=== PATIENT | female | born 1995 | race Caucasian/White ===

== ENCOUNTER 2020-09-20 18:07 | Emergency (ER) | payer BC, OTHER ==
[2020-09-20] MEDS ORDERED: Ketorolac 30 MG/ML SDV IM ONE (18:39)
--- NOTE | 2020-09-20 18:41 | EDM.PDOC ---
Scribed by Radha Hfofman 09/20/20 1841 for Bill Le MD <Bill Le - Last Filed: 09/20/20 18:40> ED HPI GENERAL MEDICAL PROBLEM - General Chief Complaint: Lower Extremity Injury/Pain Stated Complaint: FELL DOWN STAIRS Time Seen by Provider: 09/20/20 18:28 Source of Information: Reports: Patient, RN, RN Notes Reviewed History Limitations: Reports: No Limitations - History of Present Illness INITIAL COMMENTS - FREE TEXT/NARRATIVE: Barbara is a 25-year-old female here today following a fall down 5 stairs. She is experiencing acute pain in her left lower back with occasional shooting pains down her left leg. She denies any loss of consciousness and did not hit her head in the fall. She is able to walk but it is very painful. Onset: Today Duration: Constant Location: Reports: Back (lower) Quality: Reports: Ache Severity: Moderate Improves with: Reports: None Worsens with: Reports: Movement Associated Symptoms: Reports: No Other Symptoms Left Hip Pain Score (Numeric/FACES): 5 - Related Data Allergies Allergy/AdvReac Type Severity Reaction Status Date / Time No Known Allergies Allergy Verified 09/20/20 18:28 Home Meds: Home Meds . [No Known Home Meds] 09/20/20 [History] Review of Systems - Review of Systems Review Of Systems: Comprehensive ROS is negative, except as noted in HPI. ED EXAM, GENERAL - Physical Exam Exam: See Below Exam Limited By: No Limitations General Appearance: Alert, WD/WN, Moderate Distress Eye Exam: Bilateral Eye: EOMI, Normal Inspection, PERRL Ears: Normal External Exam, Normal Canal, Hearing Grossly Normal, Normal TMs Nose: Normal Inspection, Normal Mucosa, No Blood Throat/Mouth: Normal Inspection, Normal Lips, Normal Teeth, Normal Gums, Normal Oropharynx, Normal Voice, No Airway Compromise Head: Atraumatic, Normocephalic Neck: Normal Inspection, Supple, Non-Tender, Full Range of Motion Respiratory/Chest: No Respiratory Distress, Lungs Clear, Normal Breath Sounds, No Accessory Muscle Use, Chest Non-Tender Cardiovascular: Normal Peripheral Pulses, Regular Rate, Rhythm, No Edema, No Gallop, No JVD, No Murmur, No Rub GI/Abdominal: Normal Bowel Sounds, Soft, Non-Tender, No Organomegaly, No Distention, No Abnormal Bruit, No Mass (Female) Exam: Deferred Rectal (Female) Exam: Deferred Back Exam: Decreased Range of Motion, Paraspinal Tenderness. No: Vertebral Tenderness Extremities: Normal Inspection, Normal Range of Motion, Non-Tender, Normal Capillary Refill, No Pedal Edema Neurological: Alert, Oriented, CN II-XII Intact, Normal Cognition, Normal Gait, No Motor/Sensory Deficits Psychiatric: Normal Affect, Normal Mood Skin Exam: Warm, Dry, Intact, Normal Color, No Rash Course - Re-Assessments/Exams Free Text/Narrative Re-Assessment/Exam: 09/20/20 18:41 I saw and evaluated the patient. Discussed with resident and agree with residents findings and plan as documented in the residents note. Departure - Departure Disposition: Home, Self-Care 01 Clinical Impression: Lumbar radiculopathy, acute - Discharge Information Instructions: Radicular Pain, Muscle Strain, [id number] Referrals: PCP,None [Primary Care Provider] - Forms: ED Department Discharge Additional Instructions: RX Flexeril orally three times daily as needed for muscle spasm do not drive while taking this medication Dexamethasone 2 mg orally twice daily for 4 days Follow-up with your primary care provider if no improvement for possible MRI May use ibuprofen and/or Tylenol as directed for pain May alternate heat and ice to the area <Serena Castro - Last Filed: 09/21/20 01:59> Course - Vital Signs Last Recorded V/S: Last Vital Signs Temp 97.3 F 09/20/20 18:22 Pulse 97 09/20/20 18:22 Resp 18 09/20/20 18:22 BP 120/63 09/20/20 18:22 Pulse Ox 100 09/20/20 18:22 - Orders/Labs/Meds Meds: Medications Discontinued Medications Generic Name Dose Route Start Last Admin Trade Name Billyq PRN Reason Stop Dose Admin Dexamethasone 8 mg 09/20/20 19:54 09/20/20 20:23 Dexamethasone 4 Mg/Ml Sdv IM 09/20/20 19:55 8 mg ONETIME ONE Administration Ketorolac Tromethamine 30 mg 09/20/20 18:39 09/20/20 18:48 Ketorolac 30 Mg/Ml Sdv IM 09/20/20 18:40 30 mg ONETIME ONE Administration - Radiology Interpretation Free Text/Narrative:: Lumbar xray: PROCEDURE INFORMATION: Exam: XR Lumbosacral Spine Exam date and time: 09/20/2020 9:15 PM Age: 25 years old Clinical indication: Injury or trauma; Fall; Blunt trauma (contusions or hematomas); Injury date: 09/20/2020; Injury details: Fell down stairs; Additional info: Pain after fall TECHNIQUE: Imaging protocol: XR of the lumbosacral spine. Views: 2 or 3 views. COMPARISON: No relevant prior studies available. FINDINGS: Bones/joints: There is a moderate broad-based right-sided thoracolumbar scoliosis.There is no evidence of acute fracture. There are no significant degenerative changes present. The pedicles are intact. No visible bone destruction. Soft tissues: There is no soft tissue abnormality seen. Organs: An intrauterine device is present. IMPRESSION: No acute findings. Thank you for allowing us to participate in the care of your patient. Dictated and Authenticated by: Davin Tijerina MD 09/20/2020 9:49 PM Central Time ([place] & [place]) See rad report - Re-Assessments/Exams Free Text/Narrative Re-Assessment/Exam: 09/20/20 20:57 Upon reexamination the patient had midspinal tenderness. Xrays ordered. 09/21/20 01:59 I saw and evaluated the patient. Discussed with resident and agree with residents findings and plan as documented in the residents note. Departure - Departure Time of Disposition: 21:57 Condition: Fair - Discharge Information *PRESCRIPTION DRUG MONITORING PROGRAM REVIEWED*: No *COPY OF PRESCRIPTION DRUG MONITORING REPORT IN PATIENT ANNETTE: No Sepsis Event Note (ED) - Focused Exam Vital Signs: Vital Signs Temp Pulse Resp BP Pulse Ox 09/20/20 18:22 97.3 F 97 18 120/63 100 I have read and agree with the documentation that has been completed regarding this visit. By signing this record, I attest that the documentation was completed in my physical presence and is an accurate record of the encounter.
[2020-09-20] MEDS ORDERED: Dexamethasone 4 MG/ML SDV IM ONE (19:54)
--- NOTE | 2020-09-20 21:50 | CR ---
PROCEDURE INFORMATION: Exam: XR Lumbosacral Spine Exam date and time: 09/20/2020 9:15 PM Age: 25 years old Clinical indication: Injury or trauma; Fall; Blunt trauma (contusions or hematomas); Injury date: 09/20/2020; Injury details: Fell down stairs; Additional info: Pain after fall TECHNIQUE: Imaging protocol: XR of the lumbosacral spine. Views: 2 or 3 views. COMPARISON: No relevant prior studies available. FINDINGS: Bones/joints: There is a moderate broad-based right-sided thoracolumbar scoliosis.There is no evidence of acute fracture. There are no significant degenerative changes present. The pedicles are intact. No visible bone destruction. Soft tissues: There is no soft tissue abnormality seen. Organs: An intrauterine device is present. IMPRESSION: No acute findings.
== END 2020-09-20 22:15 | disposition home or self-care (01) ==
LOC: DL.ED 18:07
DX: M54.16 Radiculopathy, lumbar region (principal)
CPT/HCPCS: 72100; 96372; 99283; J1100; J1885